=== PATIENT | male | born 1965 | race Caucasian/White ===

== ENCOUNTER 2017-06-02 21:32 | Emergency (ER) | payer BC ==
--- OUTSIDE RECORDS SUMMARY | 2017-06-02 21:36 | XMS REPORT ---
:1965 External Reference #:[id number] Author Organization [facility] Address [address] [place] [address] Phone [phone] Care Team Providers Name Role Phone Gregory Roblero M.D. Primary Care Physician Unavailable Payers Type Date Identification Numbers Payment Provider Subscriber Commercial Policy Number: [id number] [facility] Magdy Vu PayID: [id number] [address] [address] [place] [address] Problems Date Description Provider Status Onset: 07/30/2014 External ear conductive hearing loss Leno Shaikh MD Active Family History Date Family Member(s) Problem(s) Comments General No Current Problems Social History Type Date Description Comments Occupation Real Estate Cigarette Use Former Cigarette Smoker 1 Pack Daily Cigarette Use for 10 years, quit at age 31 Cigars Never Smoked Cigars Pipe Never Smoked A Pipe Smokeless Tobacco Never Used Smokeless Tobacco ETOH Use Currently occasionally consumes alcohol Smoking Patient is a former smoker Allergies, Adverse Reactions, Alerts Date Description Reaction Status Severity Comments 07/30/2014 NKDA active Medications Medication Date Status Form Strength Qnty SIG Indications Ordering Provider No Active 06/09/ Active Unknown Medications 2016 No Active 04/02/ Hx Unknown Medications 2014 - 2014 Fluticasone 04/02/ Hx Suspension 50mcg/Act 1month 2 sprays Leno Propionate 2015 - each Jerilyn Shaikh, 06/08/ nostrjoanie POOLE 2016 daily Minocycline 00/ Hx Capsules 100mg 100mg Cardina, HCL 0000 - every 12 Gregory 04/02/ hours for M.D. 2014 7 days. Immunizations CPT Code Status Date Vaccine Lot # [id number] Given Unknown Prevnar 13 For Intramuscular Use 67737 Refused 04/02/2015 Prevnar 13 For Intramuscular Use 39658 Refused 04/02/2015 Influenza Virus Vaccine, 3 Years Of Age And Above, Intramuscular 54029 Refused 07/30/2014 Influenza Virus Vaccine, 3 Years Of Age And Above, Intramuscular Vital Signs Date Vital Result Comment 05/18/2017 BP Systolic 143 mmHg BP Diastolic 92 mmHg Heart Rate 58 /min Respiratory Rate 18 /min Weight 230.00 lb Weight in kg's 104.328 Height 74 inches 6'2" Height in cm's 188.0 cm BMI (Body Mass Index) 29.5 kg/m2 06/09/2016 Weight 225.00 lb Weight in kg's 102.060 Height 74 inches 6'2" Height in cm's 188.0 cm BMI (Body Mass Index) 28.9 kg/m2 04/02/2015 BP Systolic 126 mmHg BP Diastolic 75 mmHg Heart Rate 57 /min Respiratory Rate 17 /min Weight 225.00 lb Weight in kg's 102.060 Height 74 inches 6'2" Height in cm's 188.0 cm BMI (Body Mass Index) 28.9 kg/m2 07/30/2014 BP Systolic 139 mmHg BP Diastolic 82 mmHg Heart Rate 58 /min Respiratory Rate 17 /min Weight 245.00 lb Weight in kg's 111.132 Height 74 inches 6'2" Height in cm's 188.0 cm BMI (Body Mass Index) 31.5 kg/m2 Results Description No Information Procedures Date CPT Code Description Status 06/09/2016 92423 Removal Wax Impaction Completed 05/13/2015 59508 Tympanometry Completed 05/13/2015 26741 Comprehensive Audiogram Completed Encounters Type Date Location Provider CPT E/M Dx Office Visit 05/18/2017 11:00a Kaylene,After 05/15/07 Leno Shaikh, [address]91 H61.23 MD J02.9 Office Visit 05/13/2015 11:00a Kaylene,After 05/15/07 [place] [address] H90.3 Office Visit 04/02/2015 11:00a Kaylene,After 05/15/07 [place] [address] H69.83 J31.0 Office Visit 07/30/2014 3:00p Kaylene,After 05/15/07 [place] [address] 389.01 380.4 Plan of Care No Information Available
[2017-06-02 21:41] VITALS: BP 154/84
--- NOTE | 2017-06-02 21:43 | UC ---
Throat Pain/Nasal Andrews HPI - HPI Summary HPI Summary: Pt presents with concerns about an abnormal shape of his uvula and a sore on his tongue. 1) He tells me that about 3 weeks ago he had mild URI, which improved in about a week. Since that time he has noticed his uvula has a "tag" at the inferior aspect and is enlarged at the superior posterior portion. No pain. 2) 2 days ago he noticed a red spot on the right side of his tongue that is mildly tender. He tells me that since the first of the year he has been very active at the gym and has made it a goal to go every single day. He is very concerned that he has strep, the flu, and/or ringworm because people at the gym have had all of these. 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 Denies fever, chills, SOB, chest pain, abdominal pain, n/v/d/c, or recent injury to his mouth - despite being hit in the head/face/mouth often during his gym routines. He says always wears protective gear. - History of Current Complaint Chief Complaint: UCRespiratory Stated Complaint: THROAT COMPLAINT Hx Obtained From: Patient - Allergies/Home Medications Allergies/Adverse Reactions: Allergies Allergy/AdvReac Type Severity Reaction Status Date / Time No Known Allergies Allergy Verified 12/01/15 16:43 PMH/Surg Hx/FS Hx/Imm Hx - Surgical History Surgical History: None - Family History Known Family History: Positive: Unknown - Social History Occupation: Employed Full-time Lives: Alone Alcohol Use: Occasionally Alcohol Amount: couple beers Substance Use Type: None Smoking Status (MU): Never Smoked Tobacco Have You Smoked in the Last Year: No When Did the Patient Quit Smoking/Using Tobacco: 5 or more years - Immunization History Most Recent Influenza Vaccination: 2014 Most Recent Tetanus Shot: unsure Review of Systems Constitutional: Negative Skin: Negative ENT: Other - Enlarged uvula. Tongue pain Respiratory: Negative Cardiovascular: Negative Gastrointestinal: Negative All Other Systems Reviewed And Are Negative: Yes Physical Exam Triage Information Reviewed: Yes Appearance: Well-Appearing, No Pain Distress, Well-Nourished, Other: - Appears very anxious and is speaking very quickly. NAD. Vital Signs: Initial Vital Signs Temp 97.5 F 06/02/17 21:36 Pulse 76 06/02/17 21:36 Resp 18 06/02/17 21:36 BP 154/84 06/02/17 21:36 Pulse Ox 100 06/02/17 21:36 Vital Signs Reviewed: Yes Eyes: Positive: Conjunctiva Clear. Negative: Conjunctiva Inflamed, Discharge ENT: Positive: Hearing grossly normal, Pharynx normal, TMs normal, Uvula midline , Other - Uvula appears mildly enlarged at the superior posterior aspect - nontender. No erythema or drainage. On the right side of his tongue there is a mildly erythematous patch ~3mm with a central white spot - mildly TTP. No drainage or bleeding.. Negative: Pharyngeal erythema, Nasal congestion, Nasal drainage, TM bulging, TM dull, TM red, Hoarse voice, Dental tenderness, Sinus tenderness Dental: Negative: Dental Fracture @, Abscess @, Cellulitis @, Bleeding Neck: Positive: Supple, Nontender, No Lymphadenopathy Respiratory: Positive: Lungs clear, Normal breath sounds, No respiratory distress Cardiovascular: Positive: RRR, No Murmur, Pulses Normal Skin: Negative: rashes, significant lesion(s) Throat Pain/Nasal Course/Dx - Course Course Of Treatment: POC rapid strep negative. General culture taken of tongue and uvula as this was the area of his concern. His uvula does not look suspicious and I suspect this is a normal variant. I advised him to continue monitoring and to follow up with his PCP if he continues to be concerned or develops additional symptoms. Regarding his tongue sore, he adamantaly denies injury, burn, or biting the area. This seems most consistent with a bite of his tongue, but could be an aphthous ulcer. I will rx magic mouthwash and have him f /u with his PCP if symptoms persist. - Differential Dx/Diagnosis Provider Diagnoses: Aphthous ulcer tongue Discharge - Discharge Plan Condition: Stable Disposition: HOME Prescriptions: Magic M W2 Martinez/Maal/Nyst/Lido* 5 ml SWISH SPIT TID #105 ml Patient Education Materials: Canker Sores (ED) Referrals: Hi Kidd MD [Primary Care Provider] - Additional Instructions: If you develop a fever, shortness of breath, chest pain, new or worsening symptoms - please call your PCP or go to the ED. Your blood pressure was high at todays visit. Please see your primary provider within 4 weeks for recheck and re-evaluation.
== END 2017-06-02 22:02 | disposition home or self-care (01) ==
LOC: UCEAST 21:32
DX: K12.0 Recurrent oral aphthae (principal)
CPT/HCPCS: 87070; 87205; 87651; 99212; G0463

== ENCOUNTER 2018-06-22 20:04 | Emergency (ER) | payer BC ==
--- OUTSIDE RECORDS SUMMARY | 2018-06-22 20:10 | XMS REPORT | Continuity of Care Document ---
:1965 External Reference #:[id number] Author Name Bette John PA-C Address [address] [place] [address] Care Team Providers Name Role Phone Gregory Roblero M.D. Primary Care Physician Unavailable Payers Type Date Identification Numbers Payment Provider Subscriber Policy Number: [id number] [facility] Magdy Vu PayID: [id number] [address] [address] [place] [address] Advance Directives Description No Information Available Problems Date Description Provider Status Onset: 07/30/2014 External ear conductive hearing loss Leno Shaikh MD Active Family History Date Family Member(s) Problem(s) Comments General No Current Problems Social History Type Date Description Comments Sex Unknown Occupation Real Estate Tobacco Use Start: Unknown End: Unknown Former Cigarette Smoker 1 Pack Daily Cigarette Use for 10 years, quit at age 31 Tobacco Use Start: Unknown Never Smoked Cigars Tobacco Use Start: Unknown Never Smoked A Pipe Smokeless Tobacco Never Used Smokeless Tobacco ETOH Use Currently occasionally consumes alcohol Tobacco Use Start: Unknown End: Unknown Patient is a former smoker Smoking Status Reviewed: 05/18/17 Patient is a former smoker Allergies, Adverse Reactions, Alerts Description No Known Drug Allergies Medications Medication Date Status Form Strength Qnty SIG Indications Ordering Provider No Active 06/09/ Active Unknown Medications 2016 No Active 04/02/ Hx Unknown Medications 2014 - 2014 Fluticasone 04/02/ Hx Suspension 50mcg/Act 1month 2 sprays Leno Propionate 2015 - each Jerilyn Shaikh, 06/08/ nostril 2017 daily Minocycline 00/00/ Hx Capsules 100mg 100mg Cardina, HCL 0000 - every 12 Gregory 04/02/ hours for M.D. 2014 7 days. Immunizations CPT Code Status Date Vaccine Lot # [id number] Given Unknown Prevnar 13 For Intramuscular Use 62692 Refused 04/02/2015 Prevnar 13 For Intramuscular Use 89824 Refused 04/02/2015 Influenza Virus Vaccine, 3 Years Of Age And Above, Intramuscular 80232 Refused 07/30/2014 Influenza Virus Vaccine, 3 Years Of Age And Above, Intramuscular Vital Signs Date Vital Result Comment 06/06/2018 1:39pm Weight 230.00 lb Weight 104.328 kg Height 74 inches 6'2" Height in cm's 188.0 cm BMI (Body Mass Index) 29.5 kg/m2 05/18/2017 11:20am BP Systolic 143 mmHg BP Diastolic 92 mmHg Heart Rate 58 /min Respiratory Rate 18 /min Weight 230.00 lb Weight 104.328 kg Height 74 inches 6'2" Height in cm's 188.0 cm BMI (Body Mass Index) 29.5 kg/m2 06/09/2016 2:17pm Weight 225.00 lb Weight 102.060 kg Height 74 inches 6'2" Height in cm's 188.0 cm BMI (Body Mass Index) 28.9 kg/m2 04/02/2015 11:19am BP Systolic 126 mmHg BP Diastolic 75 mmHg Heart Rate 57 /min Respiratory Rate 17 /min Weight 225.00 lb Weight 102.060 kg Height 74 inches 6'2" Height in cm's 188.0 cm BMI (Body Mass Index) 28.9 kg/m2 07/30/2014 3:29pm BP Systolic 139 mmHg BP Diastolic 82 mmHg Heart Rate 58 /min Respiratory Rate 17 /min Weight 245.00 lb Weight 111.132 kg Height 74 inches 6'2" Height in cm's 188.0 cm BMI (Body Mass Index) 31.5 kg/m2 Results Description No Information Available Procedures Date Code Description Status 06/06/2018 13733 Removal Wax Impaction Completed 05/18/2017 27210 Removal Wax Impaction Completed 06/09/2016 46596 Removal Wax Impaction Completed 05/13/2015 29640 Tympanometry Completed 05/13/2015 78330 Comprehensive Audiogram Completed Encounters Type Date Location Provider Dx Diagnosis Office Visit 05/18/2017 Kaylene,Fede Jean-Baptiste H61.23 Impacted cerumen, 11:00a 05/15/07 MD Hawa bilateral H61.23 Impacted cerumen, bilateral J02.9 Acute pharyngitis, unspecified Office Visit 05/13/2015 [place],After Leno Jean-Baptiste H90.3 Sensorineural 11:00a 05/15/07 MD Hawa hearing loss, bilateral Office Visit 04/02/2015 [place],After Leno Jean-Baptiste H69.83 Other specified 11:00a 05/15/07 MD Hawa disorders of Eustachian tube, bilateral J31.0 Chronic rhinitis Office Visit 07/30/2014 [place],After Leno Jean-Baptiste 389.01 Hearing Loss, 3:00p 05/15/07 MD Hawa Conductive/ External Ear 380.4 Impacted Cerumen / Wax Plan of Treatment No Information Available
--- OUTSIDE RECORDS SUMMARY | 2018-06-22 20:10 | XMS REPORT | Continuity of Care Document ---
:1965 External Reference #:[id number] Author Name Bette oJhn PA-C Address [address] [place] [address] Care Team Providers Name Role Phone Gregory Roblero M.D. Primary Care Physician Unavailable Payers Type Date Identification Numbers Payment Provider Subscriber Policy Number: [id number] [facility] Magdy Vu PayID: [id number] [address] [address] [place] [address] Advance Directives Description No Information Available Problems [...] CPT Code Status Date Vaccine Lot # [id number] Given Unknown Prevnar 13 For Intramuscular Use 86341 Refused 04/02/2015 Prevnar 13 For Intramuscular Use 92854 Refused 04/02/2015 Influenza Virus Vaccine, 3 Years Of Age And Above, Intramuscular 68798 Refused 07/30/2014 Influenza Virus Vaccine, 3 Years [...] Available Procedures Date Code Description Status 06/06/2018 45577 Removal Wax Impaction Completed 05/18/2017 07121 Removal Wax Impaction Completed 06/09/2016 97145 Removal Wax Impaction Completed 05/13/2015 00725 Tympanometry Completed 05/13/2015 33359 Comprehensive Audiogram Completed Encounters Type Date Location Provider Dx Diagnosis Office Visit 06/11/2018 Kaylene,After Bette John, H61.121 Hematoma of 3:30p 05/15/07 MALIK cronin, right ear Office Visit 05/18/2017 Kaylene,After Leno Jean-Baptiste H61.23 Impacted cerumen, 11:00a 05/15/07 MD Hawa bilateral H61.23 Impacted cerumen, bilateral J02.9 Acute pharyngitis, unspecified Office Visit 05/13/2015 [place],After Leno Jean-Baptiste H90.3 Sensorineural 11:00a 05/15/07 MD [place]a hearing loss, bilateral Office Visit 04/02/2015 [place],After Leno Jean-Baptiste H69.83 Other specified 11:00a 05/15/07 MD Hawa disorders of Eustachian tube, bilateral J31.0 Chronic rhinitis Office Visit 07/30/2014 [place],After Leno Jean-Baptiste 389.01 Hearing Loss, 3:00p 05/15/07 MD Hawa Conductive/ External Ear 380.4 Impacted Cerumen / Wax Plan of Treatment No Information Available
[2018-06-22 20:13] VITALS: BP 121/76
[2018-06-22] MEDS ORDERED: Ondansetron ODT TAB* 4 MG PO ONE ×2 (20:28→20:51)
[2018-06-22 20:35] LABS: Influenza A Molecular NEGATIVE (Negative); Influenza B Molecular NEGATIVE (Negative)
--- NOTE | 2018-06-22 20:35 | UC ---
Nausea/Vomiting/Diarrhea HPI - HPI Summary HPI Summary: 52-year-old male comes in to clinic with a chief complaint of sudden onset at midnight this morning of nausea and vomiting. He had eaten out at a restaurant and got home an hour or 2 before the episode started. After multiple episodes of vomiting started with diarrhea. He continued with nausea with occasional dry heaving during the rest of the day and continued diarrhea. Overall the vomiting has decreased but he still nauseous. Has not seen any blood in his stool. After vomiting multiple times he didn't see a couple streaks of blood in his vomit but states there was some very small amount. No complaint of any specific abdominal pain. He does get cramping that comes and goes. Has not had any abdominal surgeries. - History of Current Complaint Chief Complaint: UCGI Stated Complaint: VOMITING Time Seen by Provider: 06/22/18 20:15 Pain Intensity: 0 - Allergies/Home Medications Allergies/Adverse Reactions: Allergies Allergy/AdvReac Type Severity Reaction Status Date / Time No Known Allergies Allergy Verified 06/22/18 20:13 Home Medications: Home Medications Ibuprofen TAB* [Advil TAB*] 400 mg PO ONCE PRN 06/22/18 [History Confirmed 06/22] PMH/Surg Hx/FS Hx/Imm Hx Previously Healthy: Yes - Surgical History Surgical History: None - Family History Known Family History: Positive: Unknown - Social History Alcohol Use: Occasionally Alcohol Amount: couple beers Substance Use Type: None Smoking Status (MU): Never Smoked Tobacco Have You Smoked in the Last Year: No When Did the Patient Quit Smoking/Using Tobacco: 5 or more years - Immunization History Most Recent Influenza Vaccination: 2014 Most Recent Tetanus Shot: unsure Review of Systems All Other Systems Reviewed And Are Negative: Yes Constitutional: Positive: Chills Skin: Positive: Negative Eyes: Positive: Negative ENT: Positive: Negative Respiratory: Positive: Negative Cardiovascular: Positive: Negative Gastrointestinal: Positive: Vomiting, Diarrhea, Nausea Motor: Positive: Negative Neurovascular: Positive: Negative Musculoskeletal: Positive: Negative Neurological: Positive: Negative Psychological: Positive: Negative Is Patient Immunocompromised?: No Physical Exam Triage Information Reviewed: Yes Appearance: No Pain Distress, Well-Nourished, Ill-Appearing - mild Vital Signs: Initial Vital Signs Temp 97.3 F 06/22/18 20:10 Pulse 70 06/22/18 20:10 Resp 18 06/22/18 20:10 BP 121/76 06/22/18 20:10 Pulse Ox 100 06/22/18 20:10 Vital Signs Reviewed: Yes Eye Exam: Normal Eyes: Positive: Conjunctiva Clear ENT: Positive: Pharynx normal, TMs normal - mildly dry Neck exam: Normal Neck: Positive: Supple Respiratory: Positive: Lungs clear, Normal breath sounds, No respiratory distress Cardiovascular: Positive: RRR Abdomen Description: Positive: Nontender, Soft Bowel Sounds: Positive: Present Musculoskeletal Exam: Normal Musculoskeletal: Positive: Strength Intact, ROM Intact Neurological Exam: Normal Neurological: Positive: Alert, Muscle Tone Normal Psychological Exam: Normal Psychological: Positive: Age Appropriate Behavior Skin Exam: Normal Naus/Vom/Diarrhea Course/Dx - Course Course Of Treatment: On examination patient did not have any abdominal pain. The plan is Zofran as needed is advance diet diet as tolerated. If the patient gets sicker with dehydration and abdominal pain fevers and feeling worse she should go to the emergency department for further evaluation and treatment. - Differential Dx/Diagnosis Provider Diagnosis: Nausea vomiting and diarrhea Condition At Discharge: Stable Discharge - Sign-Out/Discharge Documenting (check all that apply): Patient Departure All imaging exams completed and their final reports reviewed: No Studies - Discharge Plan Condition: Stable Disposition: HOME Prescriptions: Ondansetron ODT TAB* [Zofran 4 MG Odt TAB*] 4 mg PO Q6H PRN #10 tab.odt PRN Reason: Nausea Patient Education Materials: Acute Nausea and Vomiting (ED), Acute Diarrhea (ED ) Referrals: Hi Kidd MD [Primary Care Provider] - Additional Instructions: FOLLOW UP WITH YOUR DOCTOR IF NOT COMPLETELY IMPROVED. GO TO THE EMERGENCY DEPARTMENT FOR ANY WORSENING OF YOUR CONDITION; DEHYDRATION , ABDOMINAL PAIN, YOU FEEL ILL OR QUESTIONS OR CONCERNS. - Billing Disposition and Condition Condition: STABLE Disposition: Home
== END 2018-06-22 21:12 | disposition home or self-care (01) ==
LOC: UCEAST 20:04
DX: R11.2 Nausea with vomiting, unspecified (principal); R19.7 Diarrhea, unspecified; Z87.891 Personal history of nicotine dependence
CPT/HCPCS: 99212; A9270-GY; G0463

== ENCOUNTER 2019-03-01 13:38 | Emergency (ER) | payer BC ==
--- OUTSIDE RECORDS SUMMARY | 2019-03-01 13:47 | XMS REPORT | Continuity of Care Document ---
:1965 External Reference #:[id number] Author Name Keysha Solis M.D. (transmitted by agent of provider Lisa Farley) Address [address] [place] [address] [place] [address] Care Team Providers Name Role Phone Tim Ojeda MD - Dermatology Care Team Information Backside Grinder Simon Lombardo III, MD - Internal Care Team Information Backside Grinder Medicine Keysha Solis MD - Adult Care Team Information Backside Grinder [phone] Reconstructive Orthopaedic Surgery Problems Active Problems Provider Date Gastroesophageal reflux disease Doroteo Singer MD Onset: 02/05/2014 Ex-smoker Hi Kidd M.D.,FACP Onset: 12/16/2016 Body mass index 25-29 - overweight Hi Kidd M.D.,FACP Onset: 2016 Localized, primary osteoarthritis Keysha Slois M.D. Onset: 12/05/2018 Social History Type Date Description Comments Sex Unknown Tobacco Use Start: Unknown End: Former Cigarette Smoker Unknown Smoking Status Reviewed: 01/04/19 Former Cigarette Smoker ETOH Use 12/16/2016 Occasionally consumes alcohol Tobacco Use Start: Unknown End: Patient is a former 1 [employer] for 20 years smoker Recreational Drug Use Denies Drug Use Exercise Type/Frequency 12/16/2016 Exercises regularly Mixed martial arts and running Allergies, Adverse Reactions, Alerts Description No Known Drug Allergies Medications Active Medications SIG Qnty Indications Ordering Provider Date Prilosec OTC 1 by mouth every Unknown 20mg Tablets day DR History Medications No Active Medications Unknown 09/27/2018 - 09/27/2018 Ranitidine HCL take 1 tablet in the 45tabs Hi Mijares 08/03/2018 - 150mg in the morning every Elizabeth Kidd,FACP 09/27/2018 Tablets other day Omeprazole 1 tab qod 45caps Hi Mijares 08/03/2018 - 10mg alternating w/ Elizabeth Kidd,FACP 09/27/[address] [place] Medications Administered in Office Medication SIG Qnty Indications Ordering Provider Date Depomedrol 40MG Gretchen Orlando M.D. 08/16/2018 Injection Depomedrol 40MG Gretchen Orlando M.D. 08/16/2018 Injection Immunizations CPT Code Status Date Vaccine Lot # [id number] Given 02/27/2018 Influenza Virus Vaccine, Quadrivalent, Split, Preservative Free Vital Signs Date Vital Result Comment 01/04/2019 10:15am Height 74 inches 6'2" Weight 220.00 lb Heart Rate 60 /min BP Systolic 124 mmHg BP Diastolic 86 mmHg Pain Level 0 BMI (Body Mass Index) 28.2 kg/m2 01/02/2019 2:13pm Height 74 inches 6'2" Weight 231.00 lb Heart Rate 51 /min BP Systolic Sitting 125 mmHg BP Diastolic Sitting 73 mmHg BMI (Body Mass Index) 29.7 kg/m2 Results Description No Information Available Procedures Date Code Description Status 08/16/2018 25225 Inject/Drain Joint/Bursa Major W/O US Completed 08/16/2018 55850 Inject/Drain Joint/Bursa Small W/O US Completed 07/16/2018 70966 Punch Biopsy Of Skin Completed 10/11/2016 39285422 Colonoscopy Completed Medical Devices Description No Information Available Encounters Type Date Location Provider Dx Diagnosis Office Visit 12/21/2018 Orthopedic Keysha Solis, M25.562 Pain in left knee 1:45p [facility] M25.462 Effusion, left knee M17.12 Unilateral primary osteoarthritis, left knee S83.242A Oth tear of medial meniscus, current injury, left knee, init Office Visit 12/05/2018 Orthopedic Keysha M17.12 Unilateral primary 11:00a [facility] Elizabeth Solis osteoarthritis, left C.M.A. knee M25.462 Effusion, left knee M25.562 Pain in left knee M23.8x2 Other internal derangements of left knee Office Visit 08/16/2018 1:00p Orthopedic Gretchen Orlando, M71.342 Other bursal Services Of M.D. cyst, left C.M.A. hand M70.42 Prepatellar bursitis, left knee Office Visit 08/03/2018 [facility] Internal Hi Mijares K21.9 Gastro-esophageal 2:20p Rafat Kidd M.D.,FACP reflux disease without [address] esophagitis M71.342 Other bursal cyst, left hand Z68.29 Body mass index (BMI) 29.0-29.9, adult Office Visit 07/26/2018 11:40a [facility] Dermatology Tim Ojeda, L72.8 Other follicular MD cysts of the skin and subcutaneous tissue Office Visit 07/16/2018 4:30p [facility] Dermatology Tim Ojeda, D17.21 Benign lipomatous MD neoplasm of skin, subcu of right arm D22.5 Melanocytic nevi of trunk L72.8 Other follicular cysts of the skin and subcutaneous tissue Assessments Date Code Description Provider 01/02/2019 S83.242D Other tear of medial meniscus, Simon Lombardo M.D. current injury, left knee, subsequent encounter 12/21/2018 M25.562 Pain in left knee Keysha Solis M.D. 12/21/2018 M25.462 Effusion, left knee Keysha Solis M.D. 12/21/2018 M17.12 Unilateral primary osteoarthritis, Keysha Slois M.D. left knee 12/21/2018 S83.242A Other tear of medial meniscus, Keysha Solis M.D. current injury, left knee, initial encounter 12/05/2018 M17.12 Unilateral primary osteoarthritis, Keysha Solis M.D. left knee 12/05/2018 M25.462 Effusion, left knee Keysha Solis M.D. 12/05/2018 M25.562 Pain in left knee Keysha Solis M.D. 12/05/2018 M23.8x2 Other internal derangements of left Keysha Solis M.D. knee 09/27/2018 M25.562 Pain in left knee Simon Lombardo M.D. 08/16/2018 M71.342 Other bursal cyst, left hand Gretchen Orlando M.D. 08/16/2018 M70.42 Prepatellar bursitis, left knee Gretchen Orlando M.D. 08/03/2018 K21.9 Gastro-esophageal reflux disease Hi Kidd M.D., FACP without esophagitis 08/03/2018 M71.342 Other bursal cyst, left hand Hi Kidd M.D.,FACP 08/03/2018 Z68.29 Body mass index (BMI) 29.0-29.9, Hi Kidd M.D., FACP adult 07/26/2018 L72.8 Other follicular cysts of the skin Tim Ojeda MD and subcutaneous tissue 07/16/2018 D17.21 Benign lipomatous neoplasm of skin Tim Ojeda MD and subcutaneous tissue o 07/16/2018 D22.5 Melanocytic nevi of trunk Tim Ojeda MD 07/16/2018 L72.8 Other follicular cysts of the skin Tim Ojeda MD and subcutaneous tissue Plan of Treatment No Information Available Functional Status Description No Information Available Mental Status Description No Information Available Referrals Refer to Dr Reason for Referral Status Appt Date Keysha Solis MD Persistent knee pain Sent 12/05/2018 [address] [place] [address] [phone] Gretchen Orlando M.D. synovial cyst LT index finger DIP Sent 08/16/[address] [place] [address] [id number] [phone] Marvin Wilburn M.D. intractable GERD, HH Closed [address], [place] [id number] [phone]
[2019-03-01 14:12] VITALS: BP 132/76
--- NOTE | 2019-03-01 14:32 | UC ---
Respiratory Complaint HPI - HPI Summary HPI Summary: 53 yo male presents with URI symptoms. He tells me that 10 days ago he developed some intermittent chills, fever of 101F, chest congestion and productive cough. His fever has resolved, but he is still having an intermittent cough. He was around someone a few weeks ago with bronchitis and another individual with PNA - he is concerned he may have these. Has been taking vitamin C OTC, but nothing else. He does not smoke. Denies sinus symptoms , sore throat, SOB, chest pain, n/v. - History of Current Complaint Chief Complaint: UCGeneralIllness Stated Complaint: FEVER CHILLS HEADACHE CONGESTION Time Seen by Provider: 03/01/19 14:32 Hx Obtained From: Patient Severity Currently: None Pain Intensity: 0 Pain Scale Used: 0-10 Numeric - Allergies/Home Medications Allergies/Adverse Reactions: Allergies Allergy/AdvReac Type Severity Reaction Status Date / Time No Known Allergies Allergy Verified 03/01/19 14:12 Home Medications: Home Medications Omeprazole CAP (NF) [Prilosec CAP* 20 MG] 20 mg PO DAILY 03/01/19 [History Confirmed 03/01/19] PMH/Surg Hx/FS Hx/Imm Hx GI/ History: Gastroesophageal Reflux - Surgical History Surgical History: None Surgery Procedure, Year, and Place: DENIES - Family History Known Family History: Positive: Unknown - Social History Occupation: Employed Full-time Lives: With Family Alcohol Use: Rare Alcohol Amount: couple beers Substance Use Type: None Smoking Status (MU): Never Smoked Tobacco Have You Smoked in the Last Year: No When Did the Patient Quit Smoking/Using Tobacco: high school - Immunization History Most Recent Influenza Vaccination: 2014 Most Recent Tetanus Shot: unsure Review of Systems All Other Systems Reviewed And Are Negative: No Constitutional: Positive: Fever - resolved Skin: Positive: Negative Eyes: Positive: Negative ENT: Positive: Negative Respiratory: Positive: Cough Cardiovascular: Positive: Negative Gastrointestinal: Positive: Negative Neurological: Positive: Negative Psychological: Positive: Negative Physical Exam - Summary Physical Exam Summary: GENERAL: NAD. WDWN. No pain distress. SKIN: No rashes, sores, lesions, or open wounds. HEENT: Head: AT/NC Eyes: EOM intact. Conjunctiva clear without inflammation or discharge. Ears: Hearing grossly normal. TMs intact, no bulging, erythema, or edema. Nose: Nasal mucosa pink and moist. NTTP maxillary and frontal sinus. Throat: Posterior oropharynx without exudates, erythema, or tonsillar enlargement. Uvula midline. NECK: Supple. Nontender. No lymphadenopathy. CHEST: CTAB. No accessory muscle use. Breathing comfortably and in no distress. CV: RRR. Pulses intact. Cap refill <2seconds NEURO: Alert. PSYCH: Age appropriate behavior. Triage Information Reviewed: Yes Vital Signs: Initial Vital Signs Temp 98 F 03/01/19 14:06 Pulse 70 03/01/19 14:06 Resp 16 03/01/19 14:06 BP 132/76 03/01/19 14:06 Pulse Ox 100 03/01/19 14:06 Laboratory Tests 03/01/19 14:56 Influenza A (Rapid) Negative Influenza B (Rapid) Negative Vital Signs Reviewed: Yes Diagnostics - Radiology CXR Radiology Interpretation Completed By: Radiologist Summary of Radiographic Findings: IMPRESSION: NO ACTIVE CARDIOPULMONARY DISEASE. Respiratory Course/Dx - Course Course Of Treatment: CXR as above. POC flu negative. Suspect viral URI. Recommended OTC cough suppressants and f/u if not improving. - Differential Dx/Diagnosis Provider Diagnosis: URI (upper respiratory infection) Discharge ED - Sign-Out/Discharge Documenting (check all that apply): Patient Departure All imaging exams completed and their final reports reviewed: Yes - Discharge Plan Condition: Stable Disposition: HOME Patient Education Materials: Upper Respiratory Infection (ED) Referrals: Simon Lombardo MD [Primary Care Provider] - Additional Instructions: Your symptoms are likely from a viral infection. Viral infections do not respond to antibiotics and are limited to the treatment of symptoms. Viral infections typically run their course in 7-10 days. Drink plenty of fluids to avoid dehydration especially if you are running any fever. Use salt water gargles several times a day. Take over the counter acetaminophen (Tylenol) or ibuprofen (Advil, Motrin) according to directions as needed for pain or fever. You may also use Chloraseptic spray or Cepacol lonzenges according to directions which contain a numbing medication and can provide some temporary relief from your sore throat. Return here or follow up with your primary care provider in 7 days if symptoms persist. - Billing Disposition and Condition Condition: STABLE Disposition: Home
[2019-03-01 15:09] LABS: Influenza A Molecular NEGATIVE (Negative); Influenza B Molecular NEGATIVE (Negative)
== END 2019-03-01 15:47 | disposition home or self-care (01) ==
LOC: UCEAST 13:38
DX: J06.9 Acute upper respiratory infection, unspecified (principal); K21.9 Gastro-esophageal reflux disease without esophagitis; Z79.899 Other long term (current) drug therapy
CPT/HCPCS: 71046; 99211; G0463